=== PATIENT | male | born 1960 | race Hispanic/Latino ===

== ENCOUNTER 2016-08-02 11:10 | Emergency (ER) ==
[2016-08-02 11:16] VITALS: BP 162/89
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
== END 2016-08-02 11:53 | disposition home or self-care (01) ==
LOC: ED 11:10
DX: T22.212A Burn of second degree of left forearm, initial encounter (principal); F17.210 Nicotine dependence, cigarettes, uncomplicated; Z71.6 Tobacco abuse counseling; X16.XXXA Contact with hot heating appliances, radiators and pipes, initial encounter
CPT/HCPCS: 99282